=== PATIENT | female | born 1945 ===

== ENCOUNTER 2025-06-29 06:00 | Day surgery (SDC) | payer OTHER ==
[2025-06-23 12:40] VITALS: BP 147/67
[~2025-06-29] VITALS: Ht 165.1 cm; Wt 65.8 kg
[~2025-06-29 06:00] MED LIST: HORIZANT300 MG PO; HUMALOG100 UNIT/2; LANTUS SOL100 UNIT/1; LASIX20 MG PO; LOSARTAN POTASS50 MG PO; MONTELUKAST SOD10 MG PO; PEPCID AC20 MG PO; PLAVIX75 MG PO; PREVACID15 M1 PO
[2025-06-29] MEDS ORDERED: CEFAZOLIN SODIUM 1,000 MG VIAL ONE (07:22)
[2025-06-29] MEDS ORDERED: CHLORHEXIDINE GLUCONATE 120 ML BOTTLE TOP ONE (08:15)
[2025-06-29] MEDS ORDERED: LIDOCAINE HCL 1%/EPINEPHRINE 20ML VIAL IJ ONE (08:15)
[2025-06-29] MEDS ORDERED: GENTAMICIN SULFATE/PF 10 MG/ML VIAL IJ ONE (08:15)
[2025-06-29] MEDS ORDERED: MACROBID 100 M100 MG PO (10:21)
[2025-06-29] MEDS ORDERED: TRAM1TAB98 PO (10:22)
[2025-06-29 11:49] VITALS: O2SAT 100
[2025-06-29 13:04] VITALS: BP 172/70
== END 2025-06-29 13:55 | disposition home or self-care (01) ==
LOC: CIR.AMB 06:00
PROVIDERS: ATTEND Obstetrics & Gynecology Gynecology
DX: N81.5 Vaginal enterocele (principal); N81.6 Rectocele